=== PATIENT | male | born 1950 ===

== ENCOUNTER 2016-12-24 22:45 | Inpatient (IN) | payer OTHER ==
[2016-12-24 22:45] VITALS: BMI 30.4
[2016-12-24] MEDS ORDERED: Sodium Chloride 0.9% 1,000 ML IV ONE (23:24)
--- NOTE | 2016-12-24 23:25 | C.PDOC ---
History Of Present Illness patient with hematuria since yesterday. no incontinence or retention. No f/c/n/ v. Dull aching discomfort Time Seen by Provider: 12/24/16 23:24 Chief Complaint (Nursing): Male Genitourinary History Per: Patient History/Exam Limitations: no limitations Onset/Duration Of Symptoms: Days (1) Current Symptoms Are (Timing): Still Present Severity: Moderate Pain Scale Rating Of: 4 Quality Of Discomfort: Burning Associated Symptoms: Urinary Symptoms (hematuria). denies: Fever, Chills, Nausea Alleviating Factors: None Recent travel outside of the [place]: No Additional History Per: Patient Past Medical History Reviewed: Historical Data, Nursing Documentation, Vital Signs Vital Signs: Last Vital Signs Temp 98.4 F 12/25/16 01:42 Pulse 86 12/25/16 01:42 Resp 18 12/25/16 01:42 BP 183/77 H 12/25/16 01:42 Pulse Ox 97 12/25/16 01:42 - Medical History PMH: Anxiety, Depression - [facility] Procedures VACCINATION NEC (02/21/15) Family History: States: No Known Family Hx - Social History Hx Alcohol Use: No Hx Substance Use: No Review Of Systems Constitutional: Negative for: Fever, Chills Cardiovascular: Negative for: Chest Pain Respiratory: Negative for: Shortness of Breath Gastrointestinal: Negative for: Nausea, Vomiting, Abdominal Pain Genitourinary: Positive for: Hematuria. Negative for: Penile Discharge, Scrotal Pain Musculoskeletal: Negative for: Back Pain Skin: Negative for: Rash, Lesions, Jaundice, Bruising Neurological: Negative for: Weakness Psych: Negative for: Anxiety Physical Exam - Physical Exam Appears: Non-toxic, No Acute Distress Skin: Warm, Dry Head: Normacephalic Eye(s): bilateral: Normal Inspection Oral Mucosa: Moist Neck: Supple Chest: Symmetrical Cardiovascular: Rhythm Regular Respiratory: No Rales, No Rhonchi, No Wheezing Gastrointestinal/Abdominal: Soft, No Tenderness, No Distention Back: No CVA Tenderness Male Genital: No Testicular Tenderness, No Testicular Swelling, No Inguinal Tenderness Extremity: Normal ROM Extremity: Bilateral: Atraumatic, Normal Color And Temperature Neurological/Psych: Oriented x3, Normal Speech, Normal Cognition Gait: Steady ED Course And Treatment - Laboratory Results Result Diagrams: 12/24/16 11:30 12/24/16 11:30 ECG: Interpreted By Me, Viewed By Me ECG Rhythm: Sinus Rhythm (64), Nonspecific Changes O2 Sat by Pulse Oximetry: 97 Pulse Ox Interpretation: Normal - Radiology CXR Interpretation: Yes: Other (top nl heart). No: Infiltrates, Fracture, Pnemothorax Progress Note: blood work, ivf, Disposition Discussed With Dr.: Sherman Carcamo Comment: accepted the pt on his service and took over the care at 2:22 AM Doctor Will See Patient In The: Hospital Counseled Patient/Family Regarding: Studies Performed, Diagnosis - Disposition Disposition: HOSPITALIZED Disposition Time: 23:24 Condition: FAIR - POA Present On Arrival: Poor Glycemic Control - Clinical Impression Clinical Impression: Hematuria, UTI (urinary tract infection) Decision To Admit - Pt Status Changed To: Hospital Disposition Of: Inpatient - Admit Certification Admit to Inpatient:: After my assessment, the patient will require hospitalization for at least two midnights. This is because of the severity of symptoms shown, intensity of services needed, and/or the medical risk in this patient being treated as an outpatient. - InPatient: Physician Admission Certification: I certify that this patient requires 2 or more midnights of care for the following reason:: After my assessment, the patient will require hospitalization for at least two midnights. This is because of the severity of symptoms shown, intensity of services needed, and/or the medical risk in this patient being treated as an outpatient. - . Bed Request Type: Regular Admitting Physician: Sherman Carcamo Patient Diagnosis: Hematuria, UTI (urinary tract infection)
[2016-12-24 23:31] LABS: RBC URINE 1394 /hpf (0-3); URINE BACTERIA FEW (<OCC); URINE BILIRUBIN NEGATIVE (NEGATIVE); URINE BLOOD 3+ (NEGATIVE); URINE COLOR Amber (YELLOW); URINE GLUCOSE (UA) NORMAL (Normal); URINE KETONE TRACE mg/dL (NEGATIVE); URINE PROTEIN 2+ mg/dL (NEGATIVE); WBC URINE 19 /hpf (0-5)
[2016-12-24 23:33] LABS: URINE LEUKOCYTE ESTERASE 1+ Leu/uL (Negative)
[2016-12-24 23:39] LABS: BASO % 0.5 % (0.0-2.0); EOS # 0.1 K/uL (0.0-0.7); EOS % 1.8 % (0.0-4.0); HEMATOCRIT 30.6 % (35.0-51.0); LYMPH # 1.7 K/uL (1.0-4.3); LYMPH % 30.5 % (20.0-40.0); MEAN CELL VOLUME 75.8 fL (80.0-94.0); MEAN CORPUSCULAR HGB CONC 31.7 g/dL (33.0-37.0); MEAN PLATELET VOLUME 7.5 fL (7.2-11.7); MONO # 0.6 K/uL (0.0-0.8); MONO % 10.4 % (0.0-10.0); RED CELL DISTRIBUTION WIDTH 15.5 % (11.5-14.5); WHITE BLOOD COUNT 5.6 K/uL (4.8-10.8)
[2016-12-24] MEDS ORDERED: Sodium Chloride 0.9% 1,000 ML ONE (23:41)
[2016-12-24 23:48] LABS: POTASSIUM 3.8 mmol/L (3.6-5.2); SODIUM 138 mmol/L (132-148)
[2016-12-24 23:49] LABS: INR 1.5
[2016-12-24 23:50] LABS: GFR AFRICAN-AMERICAN > 60
[2016-12-24 23:51] LABS: ALB/GLOB RATIO 0.8 (1.0-2.1); ALKALINE PHOSPHATASE 104 U/L (38-126); ALT/SGPT 33 U/L (21-72); AST/SGOT 37 U/L (17-59); BLOOD UREA NITROGEN 11 mg/dL (9-20); CALCIUM 8.8 mg/dl (8.6-10.4); CARBON DIOXIDE 30 mmol/L (22-30); GLUCOSE,RANDOM 140 mg/dL (75-110); TOTAL PROTEIN 7.7 g/dL (6.3-8.3)
[2016-12-25] MEDS ORDERED: Iodixanol 320 MG/ML 100 ML BOTTLE IV ONE (00:58)
--- NOTE | 2016-12-25 02:11 | CT ---
EXAM: CT Abdomen and Pelvis With Intravenous Contrast CLINICAL HISTORY: 66 years old, male; Pain and signs and symptoms; Other: Hematuria; Abdominal pain TECHNIQUE: Axial computed tomography images of the abdomen and pelvis with intravenous contrast. This CT exam was performed using one or more of the following dose reduction techniques: automated exposure control, adjustment of the mA and/or kV according to patient size, and/or use of iterative reconstruction technique. Coronal and sagittal reformatted images were created and reviewed. CONTRAST: 100 mL of [id number] administered intravenously. EXAM DATE/TIME: 12/24/2016 11:55 PM COMPARISON: No relevant prior studies available. FINDINGS: There is a pericardial effusion measuring approximately 1 cm in width. There is a trace amount of left pleural fluid. Gallstones. Single punctate splenic calcification. The liver is normal. The pancreas is normal. There is trace bilateral perinephric stranding. Bilateral renal cysts with the largest in the left kidney measuring 6 cm. Colonic diverticulosis. There is suggestion of a faint amount of haziness in the fat adjacent to the proximal sigmoid colon images 141 -143 possibly representing very mild early diverticulitis. Clinical correlation is recommended. A normal appendix is identified series 3 images 120 - 131, coronal images 65 through 75 measuring 5 mm in diameter with no stranding in the periappendiceal fat. No free air. IMPRESSION: Possible very mild diverticulitis proximal sigmoid colon. Small pericardial effusion. Cholelithiasis.
[2016-12-25] MEDS ORDERED: Piperacillin/Tazobact 3.375 gm 100 ML IVPB STA (02:24)
[2016-12-25] MEDS ORDERED: Piperacillin/Tazobact 3.375 gm 100 ML IVPB ONE (02:27)
[2016-12-25 03:50] VITALS: RESP 20
[2016-12-25] MEDS ORDERED: Pneumococcal 23-Valent Vaccine IM ONE (04:14)
--- NOTE | 2016-12-25 08:12 | RAD ---
PROCEDURE: CHEST RADIOGRAPH, 1 VIEW HISTORY: hematuria COMPARISON: None available. FINDINGS: LUNGS: Clear. PLEURA: No pneumothorax or pleural fluid seen. CARDIOVASCULAR: Normal. OSSEOUS STRUCTURES: No significant abnormalities. VISUALIZED UPPER ABDOMEN: Normal. OTHER FINDINGS: None. IMPRESSION: No active disease.
--- NOTE | 2016-12-25 09:12 | CP.PCM.HP ---
History of Present Illness - History of Present Illness History of Present Illness: 66 years old male patient with past medical history of anxiety depression presented with complaint of hematuria since yesterday, dull aching abdominal discomfort. No fever, nausea, vomiting. No urinary retention or urinary incontinence Present on Admission - Present on Admission Any Indicators Present on Admission: No Past Patient History - Tetanus Immunizations Tetanus Immunization: Unknown - Past Medical History & Family History Past Medical History?: Yes - Past Social History Smoking Status: Current Some Days Smoker - CARDIAC Hx Cardiac Disorders: No - PULMONARY Hx Respiratory Disorders: No - NEUROLOGICAL Hx Neurological Disorder: No - HEENT Hx HEENT Problems: Yes Hx Cataracts: Yes - RENAL Hx Chronic Kidney Disease: Yes Other/Comment: BPH - ENDOCRINE/METABOLIC Hx Endocrine Disorders: No - HEMATOLOGICAL/ONCOLOGICAL Hx Blood Disorders: No Other/Comment: "I HAVE LOW IRON" - INTEGUMENTARY Hx Dermatological Problems: No - MUSCULOSKELETAL/RHEUMATOLOGICAL Hx Falls: No - GASTROINTESTINAL Hx Gastrointestinal Disorders: Yes Hx Gastroesophageal Reflux: Yes - GENITOURINARY/GYNECOLOGICAL Hx Genitourinary Disorders: Yes Hx Prostate Problems: Yes (BPH) - PSYCHIATRIC Hx Substance Use: No - SURGICAL HISTORY Hx Surgeries: Yes (Denies) Hx Cataract Extraction: Yes (left eye January 2016) - ANESTHESIA Hx Anesthesia: Yes Hx Anesthesia Reactions: No Hx Malignant Hyperthermia: No Has any member of the family had a problem w/ anesthesia?: No Meds Allergies/Adverse Reactions: Allergies Allergy/AdvReac Type Severity Reaction Status Date / Time No Known Allergies Allergy Verified 02/21/15 13:01 Physical Exam - Constitutional Appears: Well - Head Exam Head Exam: ATRAUMATIC, NORMAL INSPECTION, NORMOCEPHALIC - Eye Exam Eye Exam: EOMI, Normal appearance, PERRL Pupil Exam: NORMAL ACCOMODATION, PERRL - ENT Exam ENT Exam: Mucous Membranes Moist, Normal Exam - Neck Exam Neck exam: Positive for: Normal Inspection - Respiratory Exam Respiratory Exam: Decreased Breath Sounds - Cardiovascular Exam Cardiovascular Exam: REGULAR RHYTHM, +S1, +S2 - GI/Abdominal Exam GI & Abdominal Exam: Diminished Bowel Sounds, Soft - Rectal Exam Rectal Exam: Deferred Results - Vital Signs Recent Vital Signs: Last Vital Signs Temp 99.5 F 12/25/16 08:57 Pulse 82 12/25/16 08:57 Resp 20 12/25/16 08:57 BP 145/63 12/25/16 08:57 Pulse Ox 95 12/25/16 08:57 - Labs Result Diagrams: 12/28/16 07:24 12/28/16 07:24 Assessment & Plan (1) Anemia Status: Acute (2) Coagulopathy Status: Acute (3) Hematuria Status: Acute (4) TIA (transient ischemic attack) Status: Acute (5) UTI (urinary tract infection) Status: Acute (6) Visual disturbance Status: Acute - Assessment and Plan (Free Text) Plan: Labs and meds reviewed IV antibiotics CT scan report noted Urine culture awaited Avelox Protonix
[2016-12-25] MEDS: Pantoprazole 40 mg EC Tab PO SCH ×2 (10:42→17:45)
[2016-12-25] MEDS: Moxifloxacin IV 400mg/250ml NS 400 MG/250 ML BAG IVPB SCH (10:46)
--- NOTE | 2016-12-25 13:56 | CP.PCM.PN ---
Subjective - Date & Time of Evaluation Date of Evaluation: 12/25/16 Time of Evaluation: 13:51 - Subjective Subjective: 66 year old male who presented with gross hematuria,pt has hx of TIA last summer , he has elevated PT not sure if he is taking anticoagulants. Ct shows large benign cysts in upper tracts prostate is enlarged. pt is on antibiotics. A gross hematuria Suggest await urine C&S pt should have cystoscopy when medically cleared and PT normalized. Kaci Objective - Vital Signs/Intake and Output Vital Signs (last 24 hours): Temp Pulse Resp BP Pulse Ox 99.5 F 82 20 145/63 95 12/25/16 08:57 12/25/16 08:57 12/25/16 08:57 12/25/16 08:57 12/25/16 08:57 - Medications Medications: Current Medications Moxifloxacin HCl (Avelox Iv 400mg/250ml Ns) 400 mg in 250 mls @ 167 mls/hr IVPB DAILY [facility] Last Admin: 12/25/16 10:46 Dose: 167 mls/hr Pantoprazole Sodium (Protonix Ec Tab) 40 mg PO DAILY [facility] Last Admin: 12/25/16 10:42 Dose: 40 mg - Labs Labs: PT 17.3 SECONDS (9.7-12.2) H 12/24/16 11:30 INR 1.5 12/24/16 11:30 APTT 33 SECONDS (21-34) 12/24/16 11:30
[2016-12-25 16:36] LABS: BASO % 0.4 % (0.0-2.0); EOS # 0.1 K/uL (0.0-0.7); HEMATOCRIT 28.7 % (35.0-51.0); LYMPH # 1.1 K/uL (1.0-4.3); LYMPH % 20.3 % (20.0-40.0); MEAN CELL VOLUME 74.4 fL (80.0-94.0); MEAN CORPUSCULAR HEMOGLOBIN 23.5 pg (27.0-31.0); MEAN CORPUSCULAR HGB CONC 31.6 g/dL (33.0-37.0); MEAN PLATELET VOLUME 7.7 fL (7.2-11.7); MONO # 0.5 K/uL (0.0-0.8); MONO % 10.3 % (0.0-10.0); RED CELL DISTRIBUTION WIDTH 15.7 % (11.5-14.5); WHITE BLOOD COUNT 5.3 K/uL (4.8-10.8)
[2016-12-25 16:51] LABS: CHLORIDE 98 mmol/L (98-107)
[2016-12-25 16:52] LABS: POTASSIUM 3.4 mmol/L (3.6-5.2); SODIUM 139 mmol/L (132-148)
[2016-12-25 16:54] LABS: ALB/GLOB RATIO 0.7 (1.0-2.1); ALKALINE PHOSPHATASE 84 U/L (38-126); ALT/SGPT 28 U/L (21-72); AST/SGOT 29 U/L (17-59); BILIRUBIN,TOTAL 0.7 mg/dL (0.2-1.3); BLOOD UREA NITROGEN 8 mg/dL (9-20); CARBON DIOXIDE 27 mmol/L (22-30); GFR AFRICAN-AMERICAN > 60; GLUCOSE,RANDOM 160 mg/dL (75-110); TOTAL PROTEIN 6.8 g/dL (6.3-8.3)
--- NOTE | 2016-12-25 17:06 | CARD ---
APPROVED REPORT EKG Measurement Heart [id number] <Conclusion> Normal sinus rhythm Normal ECG
[2016-12-25 17:07] LABS: CHLORIDE 97 mmol/L (98-107)
[2016-12-25] MEDS: Potassium Chloride 20 mEq ER Tab PO SCH (18:07)
[2016-12-26] MEDS: Potassium Chloride 20 mEq ER Tab PO SCH (10:38)
[2016-12-26] MEDS: Pantoprazole 40 mg EC Tab PO SCH ×2 (10:38→14:03)
[2016-12-26] MEDS: Moxifloxacin IV 400mg/250ml NS 400 MG/250 ML BAG IVPB SCH (10:49)
--- NOTE | 2016-12-26 11:47 | CP.PCM.PN ---
Subjective - Date & Time of Evaluation Date of Evaluation: 12/26/16 Time of Evaluation: 10:20 - Subjective Subjective: clinically same Objective - Vital Signs/Intake and Output Vital Signs (last 24 hours): Temp Pulse Resp BP Pulse Ox 98.6 F 78 20 152/76 H 96 12/26/16 08:26 12/26/16 08:26 12/26/16 08:26 12/26/16 10:38 12/26/16 08:26 Intake and Output: 12/26/16 12/26/16 06:59 18:59 Intake Total 850 Balance 850 - Medications Medications: Current Medications Enalapril Maleate (Vasotec) 10 mg PO DAILY [facility] Last Admin: 12/26/16 10:38 Dose: 10 mg Finasteride (Proscar) 5 mg PO DAILY [facility] Last Admin: 12/26/16 10:38 Dose: 5 mg Moxifloxacin HCl (Avelox Iv 400mg/250ml Ns) 400 mg in 250 mls @ 167 mls/hr IVPB DAILY [facility] Last Admin: 12/26/16 10:49 Dose: 167 mls/hr Pantoprazole Sodium (Protonix Ec Tab) 40 mg PO DAILY [facility] Last Admin: 12/26/16 10:38 Dose: 40 mg Pantoprazole Sodium (Protonix Ec Tab) 40 mg PO DAILY [facility] Last Admin: 12/25/16 17:45 Dose: 40 mg Potassium Chloride (K-Dur 20 Meq Er Tab) 40 meq PO DAILY [facility] Last Admin: 12/26/16 10:38 Dose: 40 meq Tamsulosin HCl (Flomax) 0.4 mg PO DAILY [facility] Last Admin: 12/26/16 10:38 Dose: 0.4 mg - Labs Labs: 12/25/16 16:20 12/25/16 16:20 PT 17.3 SECONDS (9.7-12.2) H 12/24/16 11:30 INR 1.5 12/24/16 11:30 APTT 33 SECONDS (21-34) 12/24/16 11:30 - Constitutional Appears: Well - Head Exam Head Exam: ATRAUMATIC, NORMAL INSPECTION, NORMOCEPHALIC - Eye Exam Eye Exam: EOMI, Normal appearance, PERRL Pupil Exam: NORMAL ACCOMODATION, PERRL - ENT Exam ENT Exam: Mucous Membranes Moist, Normal Exam - Neck Exam Neck Exam: Full ROM, Normal Inspection. absent: Lymphadenopathy - Respiratory Exam Respiratory Exam: Decreased Breath Sounds - Cardiovascular Exam Cardiovascular Exam: REGULAR RHYTHM, +S1, +S2 - GI/Abdominal Exam GI & Abdominal Exam: Soft, Diminished Bowel Sounds - Rectal Exam Rectal Exam: Deferred Assessment and Plan - Assessment and Plan (Free Text) Plan: ptt is normal chelle clear pt so cystoscpy cane be done as pt has still blody urine
[2016-12-26] MEDS ORDERED: Potassium Chloride 10 mEq ER Tab PO STA (16:09)
[2016-12-27 08:21] LABS: HEMATOCRIT 31.5 % (35.0-51.0); MEAN CELL VOLUME 74.9 fL (80.0-94.0); MEAN CORPUSCULAR HEMOGLOBIN 23.9 pg (27.0-31.0); MEAN PLATELET VOLUME 7.6 fL (7.2-11.7); RED CELL DISTRIBUTION WIDTH 15.7 % (11.5-14.5); WHITE BLOOD COUNT 6.5 K/uL (4.8-10.8)
[2016-12-27 08:29] LABS: INR 1.5
[2016-12-27 08:33] LABS: CHLORIDE 100 mmol/L (98-107); SODIUM 140 mmol/L (132-148)
[2016-12-27 08:34] LABS: POTASSIUM 4.7 mmol/L (3.6-5.2)
[2016-12-27 08:35] LABS: GFR AFRICAN-AMERICAN > 60
[2016-12-27 08:36] LABS: ALB/GLOB RATIO 0.8 (1.0-2.1); ALKALINE PHOSPHATASE 96 U/L (38-126); ALT/SGPT 33 U/L (21-72); AST/SGOT 32 U/L (17-59); BILIRUBIN,TOTAL 0.9 mg/dL (0.2-1.3); BLOOD UREA NITROGEN 7 mg/dL (9-20); CALCIUM 8.9 mg/dl (8.6-10.4); CARBON DIOXIDE 28 mmol/L (22-30); GLUCOSE,RANDOM 138 mg/dL (75-110); TOTAL PROTEIN 7.6 g/dL (6.3-8.3)
[2016-12-27] MEDS: Moxifloxacin IV 400mg/250ml NS 400 MG/250 ML BAG IVPB SCH (10:27)
[2016-12-27] MEDS: Potassium Chloride 20 mEq ER Tab PO SCH (10:28)
[2016-12-27] MEDS: Pantoprazole 40 mg EC Tab PO SCH (10:28)
--- NOTE | 2016-12-27 12:44 | CP.PCM.PN ---
Subjective - Date & Time of Evaluation Date of Evaluation: 12/27/16 Time of Evaluation: 10:00 - Subjective Subjective: clinically same Objective - Vital Signs/Intake and Output Vital Signs (last 24 hours): Temp Pulse Resp BP Pulse Ox 99.4 F 94 H 20 125/75 95 12/27/16 08:45 12/27/16 08:45 12/27/16 08:45 12/27/16 10:28 12/27/16 08:45 Intake and Output: 12/27/16 12/27/16 06:59 18:59 Intake Total 450 Output Total 1300 Balance -850 - Medications Medications: Current Medications Enalapril Maleate (Vasotec) 10 mg PO DAILY [facility] Last Admin: 12/27/16 10:28 Dose: 10 mg Finasteride (Proscar) 5 mg PO DAILY [facility] Last Admin: 12/27/16 10:29 Dose: 5 mg Moxifloxacin HCl (Avelox Iv 400mg/250ml Ns) 400 mg in 250 mls @ 167 mls/hr IVPB DAILY [facility] Last Admin: 12/27/16 10:27 Dose: 167 mls/hr Pantoprazole Sodium (Protonix Ec Tab) 40 mg PO DAILY [facility] Last Admin: 12/27/16 10:28 Dose: 40 mg Potassium Chloride (K-Dur 20 Meq Er Tab) 40 meq PO DAILY [facility] Last Admin: 12/27/16 10:28 Dose: 40 meq Tamsulosin HCl (Flomax) 0.4 mg PO DAILY [facility] Last Admin: 12/27/16 10:27 Dose: 0.4 mg - Labs Labs: 12/27/16 08:17 12/27/16 08:17 PT 17.3 SECONDS (9.7-12.2) H 12/27/16 08:17 INR 1.5 12/27/16 08:17 APTT 33 SECONDS (21-34) 12/24/16 11:30 - Constitutional Appears: Well - Head Exam Head Exam: ATRAUMATIC, NORMAL INSPECTION, NORMOCEPHALIC - Eye Exam Eye Exam: EOMI, Normal appearance, PERRL Pupil Exam: NORMAL ACCOMODATION, PERRL - ENT Exam ENT Exam: Mucous Membranes Moist, Normal Exam - Neck Exam Neck Exam: Full ROM, Normal Inspection. absent: Lymphadenopathy - Respiratory Exam Respiratory Exam: Decreased Breath Sounds - Cardiovascular Exam Cardiovascular Exam: REGULAR RHYTHM, +S1, +S2 - GI/Abdominal Exam GI & Abdominal Exam: Soft, Diminished Bowel Sounds - Rectal Exam Rectal Exam: Deferred Assessment and Plan - Assessment and Plan (Free Text) Plan: urine c/s no growth pt has stil high pt yazan same followup with dr. woodward for [facility] pt as dr. stevens want to do cystoscopy
--- NOTE | 2016-12-27 18:46 | CP.PCM.CON ---
History of Present Illness - History of Present Illness History of Present Illness: 66 year old male with a history of TIA on asprin (pt stopped 2 months ago) admitted with painless hematuria. He reports to passing small clots and blood in the urine for about 1 weeks time. He denies flank pain, fevers, and chills. He was noted to have a prolonged PT/INR in anticipation for cytoscopy. Past medical history: TIA Past surgical history: None Family history: Denies hematologic and oncologic problems Social history: Former tobacco abuse Allergies: NKA Review of systems: All remaining review of systems including HEENT, cardiovascular, respiratory, gastrointestinal, genitourinary, musculoskeletal, dermatologic, neurologic, and psychiatric are negative unless mentioned in the HPI. Past Patient History - Tetanus Immunizations Tetanus Immunization: Unknown - Past Medical History & Family History Past Medical History?: Yes - Past Social History Smoking Status: Current Some Days Smoker - CARDIAC Hx Cardiac Disorders: No - PULMONARY Hx Respiratory Disorders: No - NEUROLOGICAL Hx Neurological Disorder: No - HEENT Hx HEENT Problems: Yes Hx Cataracts: Yes - RENAL Hx Chronic Kidney Disease: Yes Other/Comment: BPH - ENDOCRINE/METABOLIC Hx Endocrine Disorders: No - HEMATOLOGICAL/ONCOLOGICAL Hx Blood Disorders: No Other/Comment: "I HAVE LOW IRON" - INTEGUMENTARY Hx Dermatological Problems: No - MUSCULOSKELETAL/RHEUMATOLOGICAL Hx Falls: No - GASTROINTESTINAL Hx Gastrointestinal Disorders: Yes Hx Gastroesophageal Reflux: Yes - GENITOURINARY/GYNECOLOGICAL Hx Genitourinary Disorders: Yes Hx Prostate Problems: Yes (BPH) - PSYCHIATRIC Hx Substance Use: No - SURGICAL HISTORY Hx Surgeries: Yes (Denies) Hx Cataract Extraction: Yes (left eye January 2016) - ANESTHESIA Hx Anesthesia: Yes Hx Anesthesia Reactions: No Hx Malignant Hyperthermia: No Has any member of the family had a problem w/ anesthesia?: No Meds Allergies/Adverse Reactions: Allergies Allergy/AdvReac Type Severity Reaction Status Date / Time No Known Allergies Allergy Verified 02/21/15 13:01 - Medications Medications: Current Medications Enalapril Maleate (Vasotec) 10 mg PO DAILY [facility] Last Admin: 12/27/16 10:28 Dose: 10 mg Finasteride (Proscar) 5 mg PO DAILY [facility] Last Admin: 12/27/16 10:29 Dose: 5 mg Moxifloxacin HCl (Avelox Iv 400mg/250ml Ns) 400 mg in 250 mls @ 167 mls/hr IVPB DAILY [facility] Last Admin: 12/27/16 10:27 Dose: 167 mls/hr Pantoprazole Sodium (Protonix Ec Tab) 40 mg PO DAILY [facility] Last Admin: 12/27/16 10:28 Dose: 40 mg Potassium Chloride (K-Dur 20 Meq Er Tab) 40 meq PO DAILY [facility] Last Admin: 12/27/16 10:28 Dose: 40 meq Tamsulosin HCl (Flomax) 0.4 mg PO DAILY [facility] Last Admin: 12/27/16 10:27 Dose: 0.4 mg Physical Exam - Head Exam Head Exam: ATRAUMATIC - Eye Exam Eye Exam: Normal appearance - ENT Exam ENT Exam: Mucous Membranes Dry - Respiratory Exam Respiratory Exam: NORMAL BREATHING PATTERN - Cardiovascular Exam Cardiovascular Exam: +S1, +S2 - GI/Abdominal Exam GI & Abdominal Exam: Normal Bowel Sounds - Extremities Exam Extremities exam: Positive for: normal inspection - Neurological Exam Neurological exam: Oriented x3 - Psychiatric Exam Psychiatric exam: Normal Affect, Normal Mood - Skin Skin Exam: Warm Results - Vital Signs Recent Vital Signs: Last Vital Signs Temp 99.2 F 12/27/16 15:00 Pulse 83 12/27/16 15:00 Resp 20 12/27/16 15:00 BP 162/71 H 12/27/16 15:00 Pulse Ox 98 12/27/16 15:00 - Labs Result Diagrams: 12/27/16 08:17 12/27/16 08:17 Labs: Laboratory Results - last 24 hr 12/27/16 12/27/16 12/27/16 08:17 08:17 08:17 WBC 6.5 RBC 4.21 L Hgb 10.1 L Hct 31.5 L MCV 74.9 L MCH 23.9 L MCHC 32.0 L RDW 15.7 H Plt Count 405 H MPV 7.6 PT 17.3 H INR 1.5 Sodium 140 Potassium 4.7 Chloride 100 Carbon Dioxide 28 Anion Gap 17 BUN 7 L Creatinine 0.8 Est GFR ( Amer) > 60 Est GFR (Non-Af Amer) > 60 Random Glucose 138 H Calcium 8.9 Total Bilirubin 0.9 AST 32 ALT 33 Alkaline Phosphatase 96 Total Protein 7.6 Albumin 3.4 L Globulin 4.2 H Albumin/Globulin Ratio 0.8 L Assessment & Plan (1) Coagulopathy Assessment and Plan: pt not on blood thinner may be nutritional will give 2U FFP tonight and a dose of vit k IV repeat coags in AM cleared for cytoscopy from hematologic standpoint if INR < 1.5 Status: Acute (2) Anemia Assessment and Plan: rule out iron deficiency hematuria Thank you for this interesting consult. Status: Acute
[2016-12-27] MEDS ORDERED: Phytonadione 10 mg/ml Inj (Adult) IV STA (18:48)
[2016-12-28 07:42] LABS: INR 1.4
[2016-12-28 07:47] LABS: RETIC% 1.5 % (0.5-1.5)
[2016-12-28 09:13] LABS: FOLATE 12.6 ng/mL
[2016-12-28 10:00] LABS: BASO % 0.4 % (0.0-2.0); EOS # 0.1 K/uL (0.0-0.7); EOS % 1.9 % (0.0-4.0); HEMATOCRIT 27.5 % (35.0-51.0); LYMPH # 1.3 K/uL (1.0-4.3); LYMPH % 22.3 % (20.0-40.0); MEAN CELL VOLUME 73.8 fL (80.0-94.0); MEAN CORPUSCULAR HEMOGLOBIN 24.2 pg (27.0-31.0); MEAN CORPUSCULAR HGB CONC 32.8 g/dL (33.0-37.0); MEAN PLATELET VOLUME 7.9 fL (7.2-11.7); MONO # 0.6 K/uL (0.0-0.8); MONO % 9.8 % (0.0-10.0); RED CELL DISTRIBUTION WIDTH 15.9 % (11.5-14.5); WHITE BLOOD COUNT 5.6 K/uL (4.8-10.8)
[2016-12-28 10:01] LABS: CHLORIDE 97 mmol/L (98-107); SODIUM 137 mmol/L (132-148)
[2016-12-28 10:02] LABS: POTASSIUM 3.8 mmol/L (3.6-5.2)
[2016-12-28 10:04] LABS: ALB/GLOB RATIO 0.8 (1.0-2.1); ALKALINE PHOSPHATASE 84 U/L (38-126); ALT/SGPT 33 U/L (21-72); AST/SGOT 34 U/L (17-59); BILIRUBIN,TOTAL 0.8 mg/dL (0.2-1.3); BLOOD UREA NITROGEN 7 mg/dL (9-20); CALCIUM 8.6 mg/dl (8.6-10.4); CARBON DIOXIDE 27 mmol/L (22-30); GFR AFRICAN-AMERICAN > 60; GLUCOSE,RANDOM 147 mg/dL (75-110); TOTAL PROTEIN 7.2 g/dL (6.3-8.3)
--- NOTE | 2016-12-28 11:30 | CP.PCM.PN ---
Subjective - Date & Time of Evaluation Date of Evaluation: 12/28/16 Time of Evaluation: 11:29 - Subjective Subjective: urine is now clear. pt is cleared for cysto will procede tomorrow if ok with admitting MD. Clemons Objective - Vital Signs/Intake and Output Vital Signs (last 24 hours): Temp Pulse Resp BP Pulse Ox 98.8 F 83 20 151/72 H 97 12/28/16 08:27 12/28/16 08:27 12/28/16 08:27 12/28/16 08:27 12/28/16 08:27 Intake and Output: 12/28/16 12/28/16 06:59 18:59 Intake Total 300 250 Output Total 650 Balance 300 -400 - Medications Medications: Current Medications Enalapril Maleate (Vasotec) 10 mg PO DAILY [facility] Last Admin: 12/27/16 10:28 Dose: 10 mg Finasteride (Proscar) 5 mg PO DAILY [facility] Last Admin: 12/27/16 10:29 Dose: 5 mg Moxifloxacin HCl (Avelox Iv 400mg/250ml Ns) 400 mg in 250 mls @ 167 mls/hr IVPB DAILY [facility] Last Admin: 12/27/16 10:27 Dose: 167 mls/hr Pantoprazole Sodium (Protonix Ec Tab) 40 mg PO DAILY [facility] Last Admin: 12/27/16 10:28 Dose: 40 mg Potassium Chloride (K-Dur 20 Meq Er Tab) 40 meq PO DAILY [facility] Last Admin: 12/27/16 10:28 Dose: 40 meq Tamsulosin HCl (Flomax) 0.4 mg PO DAILY [facility] Last Admin: 12/27/16 10:27 Dose: 0.4 mg - Labs Labs: 12/28/16 07:24 12/28/16 07:24 PT 16.3 SECONDS (9.7-12.2) H 12/28/16 07:24 INR 1.4 12/28/16 07:24 APTT 29 SECONDS (21-34) 12/28/16 07:24
[2016-12-28] MEDS: Potassium Chloride 20 mEq ER Tab PO SCH (12:00)
[2016-12-28] MEDS: Pantoprazole 40 mg EC Tab PO SCH (12:00)
[2016-12-28] MEDS: Moxifloxacin IV 400mg/250ml NS 400 MG/250 ML BAG IVPB SCH (12:03)
--- NOTE | 2016-12-28 13:17 | CP.PCM.PN ---
Subjective - Date & Time of Evaluation Date of Evaluation: 12/28/16 Time of Evaluation: 09:40 - Subjective Subjective: clinically same Objective - Vital Signs/Intake and Output Vital Signs (last 24 hours): Temp Pulse Resp BP Pulse Ox 98.8 F 83 20 151/72 H 97 12/28/16 08:27 12/28/16 08:27 12/28/16 08:27 12/28/16 12:00 12/28/16 08:27 Intake and Output: 12/28/16 12/28/16 06:59 18:59 Intake Total 300 250 Output Total 650 Balance 300 -400 - Medications Medications: Current Medications Enalapril Maleate (Vasotec) 10 mg PO DAILY [facility] Last Admin: 12/28/16 12:00 Dose: 10 mg Finasteride (Proscar) 5 mg PO DAILY [facility] Last Admin: 12/28/16 12:01 Dose: 5 mg Moxifloxacin HCl (Avelox Iv 400mg/250ml Ns) 400 mg in 250 mls @ 167 mls/hr IVPB DAILY [facility] Last Admin: 12/28/16 12:03 Dose: 167 mls/hr Pantoprazole Sodium (Protonix Ec Tab) 40 mg PO DAILY [facility] Last Admin: 12/28/16 12:00 Dose: 40 mg Potassium Chloride (K-Dur 20 Meq Er Tab) 40 meq PO DAILY [facility] Last Admin: 12/28/16 12:00 Dose: 40 meq Tamsulosin HCl (Flomax) 0.4 mg PO DAILY [facility] Last Admin: 12/28/16 12:00 Dose: 0.4 mg - Labs Labs: 12/28/16 07:24 12/28/16 07:24 PT 16.3 SECONDS (9.7-12.2) H 12/28/16 07:24 INR 1.4 12/28/16 07:24 APTT 29 SECONDS (21-34) 12/28/16 07:24 - Constitutional Appears: Well - Head Exam Head Exam: ATRAUMATIC, NORMAL INSPECTION, NORMOCEPHALIC - Eye Exam Eye Exam: EOMI, Normal appearance, PERRL Pupil Exam: NORMAL ACCOMODATION, PERRL - ENT Exam ENT Exam: Mucous Membranes Moist, Normal Exam - Neck Exam Neck Exam: Full ROM, Normal Inspection. absent: Lymphadenopathy - Respiratory Exam Respiratory Exam: Decreased Breath Sounds - Cardiovascular Exam Cardiovascular Exam: REGULAR RHYTHM, +S1, +S2 - GI/Abdominal Exam GI & Abdominal Exam: Soft, Diminished Bowel Sounds - Rectal Exam Rectal Exam: Deferred Assessment and Plan - Assessment and Plan (Free Text) Plan: NPO past midnight for cystoscopy tomorrow. Continue Avelox Proscar Flomax
[2016-12-28 16:41] VITALS: BP 102/66; PULSE 69; TEMP 98.4; O2SAT 95
--- NOTE | 2016-12-28 17:18 | CP.PCM.PN ---
Subjective - Date & Time of Evaluation Date of Evaluation: 12/28/16 Time of Evaluation: 10:00 - Subjective Subjective: PGY2 on medicine Dr. Carcamo service: Pt seen and examined at bedside this morning. No acute events overnight. No hematuria now. Pt has no complaint at the moment. Objective - Vital Signs/Intake and Output Vital Signs (last 24 hours): Temp Pulse Resp BP Pulse Ox 98.4 F 69 20 102/66 95 12/28/16 16:40 12/28/16 16:40 12/28/16 16:40 12/28/16 16:40 12/28/16 16:40 Intake and Output: 12/28/16 12/28/16 06:59 18:59 Intake Total 300 950 Output Total 650 Balance 300 300 - Medications Medications: Current Medications Enalapril Maleate (Vasotec) 10 mg PO DAILY [facility] Last Admin: 12/28/16 12:00 Dose: 10 mg Finasteride (Proscar) 5 mg PO DAILY [facility] Last Admin: 12/28/16 12:01 Dose: 5 mg Moxifloxacin HCl (Avelox Iv 400mg/250ml Ns) 400 mg in 250 mls @ 167 mls/hr IVPB DAILY [facility] Last Admin: 12/28/16 12:03 Dose: 167 mls/hr Pantoprazole Sodium (Protonix Ec Tab) 40 mg PO DAILY [facility] Last Admin: 12/28/16 12:00 Dose: 40 mg Potassium Chloride (K-Dur 20 Meq Er Tab) 40 meq PO DAILY [facility] Last Admin: 12/28/16 12:00 Dose: 40 meq Tamsulosin HCl (Flomax) 0.4 mg PO DAILY [facility] Last Admin: 12/28/16 12:00 Dose: 0.4 mg - Labs Labs: 12/28/16 07:24 12/28/16 07:24 PT 16.3 SECONDS (9.7-12.2) H 12/28/16 07:24 INR 1.4 12/28/16 07:24 APTT 29 SECONDS (21-34) 12/28/16 07:24 - Constitutional Appears: Non-toxic, No Acute Distress - Head Exam Head Exam: NORMAL INSPECTION, NORMOCEPHALIC - Eye Exam Eye Exam: Normal appearance Pupil Exam: NORMAL ACCOMODATION - Respiratory Exam Respiratory Exam: Clear to Ausculation Bilateral, NORMAL BREATHING PATTERN - Cardiovascular Exam Cardiovascular Exam: REGULAR RHYTHM, +S1, +S2. absent: Gallop, Rubs - GI/Abdominal Exam GI & Abdominal Exam: Soft, Normal Bowel Sounds - Extremities Exam Extremities Exam: absent: Pedal Edema - Neurological Exam Neurological Exam: Alert, Awake, Oriented x3 - Psychiatric Exam Psychiatric exam: Normal Mood - Skin Skin Exam: Dry, Intact Assessment and Plan - Assessment and Plan (Free Text) Assessment: Hematuria Currently resolved. Urine culture negative. Dr. Clemons consulted, help appreciated. NPO past midnight for cystoscopy tomorrow. Continue Avelox 400mg IV daily, Proscar 5mg PO daily and Flomax 0.4mg PO daily. Elevated PT S/P 2U FFP and Vitamin K injection 12/27. Dr. Bennett consulted, help appreciated. INR 1.5, PT 17.3 on admission, current INR 1.4, PT 16.3 Pt medically optimized to proceed with cystoscopy. HTN Vasotec 10mg PO daily. Prophylactic measure SCD, Protonix.
[2016-12-29] MEDS ORDERED: Gentamicin 160 MG in Sodium Chloride 0.9% 100 ML IVPB ONE (07:30)
== END 2016-12-28 20:40 | disposition left against medical advice (07) | DRG 690 ==
LOC: C.ER 22:45 → C.9E 12-25 02:23 → C.3T 12-25 02:44
PROVIDERS: ADMIT Internal Medicine Nephrology; ATTEND Internal Medicine Nephrology
PROC: 30233K1 Transfusion of Nonautologous Frozen Plasma into Peripheral Vein, Percutaneous Approach (ICD-10-PCS; principal; 2016-12-28)
DX: N39.0 Urinary tract infection, site not specified (principal); D68.9 Coagulation defect, unspecified; I12.9 Hypertensive chronic kidney disease with stage 1 through stage 4 chronic kidney disease, or unspecified chronic kidney disease; F17.210 Nicotine dependence, cigarettes, uncomplicated; K21.9 Gastro-esophageal reflux disease without esophagitis; Z86.73 Personal history of transient ischemic attack (TIA), and cerebral infarction without residual deficits; N40.0 Benign prostatic hyperplasia without lower urinary tract symptoms; D64.9 Anemia, unspecified; R31.0 Gross hematuria; N18.9 Chronic kidney disease, unspecified

== ENCOUNTER 2017-01-05 08:09 | Day surgery (SDC) | payer OTHER ==
[2017-01-01 09:44] VITALS: BMI 29.9
[2017-01-05] MEDS ORDERED: Gentamicin 160 MG in Sodium Chloride 0.9% 100 ML IVPB ONE (08:56)
[2017-01-05] MEDS ORDERED: Lidocaine 2% Jelly (Uro-Jet) ONE (09:40)
[2017-01-05] MEDS ORDERED: Ciprofloxacin 400mg/200ml D5W 400 MG/200 ML BAG IVPB ONE (09:40)
[2017-01-05] MEDS ORDERED: Lactated Ringer's 1,000 ML IV ONE (10:05)
[2017-01-05] MEDS ORDERED: Midazolam 2 MG/2 ML VIAL ONE (10:08)
[2017-01-05] MEDS ORDERED: Propofol 10 mg/ml Inj (20 ML) ONE (10:09)
--- NOTE | 2017-01-05 10:21 | PCM.SURG1 ---
Surgeon's Initial Post Op Note - Surgeon's Notes Surgeon: Kaci Mold Blower: lauro Type of Anesthesia: General LMA Anesthesia Administered By: staff Pre-Operative Diagnosis: Hematuria Operative Findings: BPH/PICKARD Post-Operative Diagnosis: hematuria due to BPH Operation Performed: cystoscopy Specimen/Specimens Removed: na Estimated Blood Loss: EBL {In ML}: 0 Blood Products Given: N/A Drains Used: No Drains Post-Op Condition: Good Date of Surgery/Procedure: 01/05/17 Time of Surgery/Procedure: 10:20
[2017-01-05 12:12] VITALS: BP 125/60; PULSE 72; RESP 15; TEMP 97.7; O2SAT 98
--- NOTE | 2017-01-05 13:31 | OP ---
PROCEDURE DATE: 01/05/2017 PREOPERATIVE DIAGNOSIS: Hematuria. POSTOPERATIVE DIAGNOSIS: Hematuria secondary to benign prostatic hypertrophy. PROCEDURE: Cystoscopy panendoscopy. PROCEDURE: As follows: The patient was asked to sign a detailed informed consent in both [place] an d [place]. He signed the consent in presence of his daughter after both received a full explanation of the risks and complications and limitations of cystoscopy. He was brought into the cystoscopy [facility] [facility] and a timeout was taken according to the rules and regulations of [facility]. The patient wa s positioned in the proper position and received prophylactic antibiotics and was cystoscoped with a #21 Storz panendoscope. The pendulous and membranous urethras were normal. The prostatic urethra sh owed trilobar hypertrophy. There was some injection of the prostate consistent with recent inflammat ion or infection. The bladder was entered atraumatically. There was no evidence of urothelial tumor or stones. Both ureteral orifices effluxed clear urine. Based on these findings, it appears the pa davidnt bled from his prostate, although no active bleeding is encountered at this point. We are start ing the patient on Proscar. He will continue on antibiotics and needs to follow up in our office in 2 weeks. Postop instructions were given to the patient and his daughter. Bernardo Clemons MD cc: [id number] TT: 01/05/2017 13:30:56 sn
== END 2017-01-05 12:45 | disposition home or self-care (01) ==
LOC: C.SDS 08:09
PROVIDERS: ATTEND Urology
DX: N40.1 Benign prostatic hyperplasia with lower urinary tract symptoms (principal); R31.9 Hematuria, unspecified; N13.8 Other obstructive and reflux uropathy; I10 Essential (primary) hypertension; F17.200 Nicotine dependence, unspecified, uncomplicated
CPT/HCPCS: 52000; J0744; J1580; J7120